=== PATIENT | female | born 1945 | race Caucasian/White ===

== ENCOUNTER → 2016-09-24 | Outpatient (CLI) | payer SELFPAY ==
[~2016-09-24] VITALS: Ht 165.1 cm; Wt 59.4 kg
[~2016-09-24] MED LIST: CALCIUM + D3 E1 EACH PO; LEVO-T50 MCG PO; SYMBICORT60 INHALAT IH
[2016-09-24 14:30] LABS: HEMATOCRIT 37.8 % (36.0-46.0); MCH 30.2 PG (29.0-34.0); MCHC 34.1 G/DL (30.0-36.0); MCV 88.5 FL (83-99); MEAN PLAT.VOLUME 11.2 uM^3 (9.5-12.4); PLATELET COUNT 206 K/uL (156-360); RBC DIS.WIDTH-CV 13.7 % (11.8-14.6); RBC DIS.WIDTH-SD 44.2 % (39-53); RED BLOOD COUNT 4.27 M/uL (3.80-5.20); WHITE BLOOD COUNT 6.1 K/uL (4.1-10.2)
[2016-09-24 14:41] LABS: INTER. NORMALIZED RATIO 1.1; PROTHROMBIN TIME 10.9 (9.2-11.2); PTT 27.2 (25-32)
== END | disposition home or self-care (01) ==
LOC: AMB 09-22 13:00
PROVIDERS: Internal Medicine Pulmonary Disease
DX: R05 Cough (principal); R91.8 Other nonspecific abnormal finding of lung field; E03.9 Hypothyroidism, unspecified; J44.9 Chronic obstructive pulmonary disease, unspecified
CPT/HCPCS: 85027; 85610; 85730; 87070; 87102; 87116; 87205; 87206; 88108; J0461; J2175; J2250; J2310; J3010